=== PATIENT | female | born 1955 | race Caucasian/White ===

== ENCOUNTER 2024-09-23 10:19 | Outpatient (CLI) | payer MEDICARE, BC | END 2024-09-23 10:20 | disposition home or self-care (01) | LOC: BICMAMMO 10:19 | PROVIDERS: ATTEND Emergency Medicine | DX: Z12.31 Encounter for screening mammogram for malignant neoplasm of breast (principal); Z78.0 Asymptomatic menopausal state; Z80.3 Family history of malignant neoplasm of breast; Z98.82 Breast implant status | CPT/HCPCS: 77063; 77067 ==